=== PATIENT | female | born 1990 | race Caucasian/White ===

== ENCOUNTER 2016-09-16 05:07 | Inpatient (IN) | payer MEDICAID ==
[~2016-09-16] VITALS: Ht 160 cm; Wt 62.7 kg
[~2016-09-16 05:07] MED LIST: IBUP800T PO; OXYC-302 PO; SERT100T
[2016-09-16] MEDS ORDERED: OXYTOCIN 30U/ 0.9% NaCL 500ML 500 ML IV ONE (05:26)
[2016-09-16] MEDS ORDERED: NEWBORN KIT ONE (05:27)
[2016-09-16] MEDS ORDERED: OXYTOCIN 30U/ 0.9% NaCL 500ML 500 ML ONE (05:27)
[2016-09-16] MEDS ORDERED: ONDANSETRON 2MG/ML, 2ML ONE (05:30)
[2016-09-16] MEDS: PENICILLIN GK 2,500,000 UNITS in DEXTROSE 5% 100 ML IVPB SCH ×2 (05:30→09:30)
[2016-09-16] MEDS ORDERED: ONDANSETRON 2MG/ML, 2ML IVPush PRN (05:30)
[2016-09-16] MEDS ORDERED: PENICILLIN GK 5,000,000 UNITS in DEXTROSE 5% 100 ML IVPB ONE (05:30)
[2016-09-16] MEDS ORDERED: FENTANYL PF 100 MCG/2ML ONE (05:30)
[2016-09-16] MEDS ORDERED: FENTANYL PF 100 MCG/2ML IV PRN (05:30)
[2016-09-16] MEDS ORDERED: FENTANYL PF 100 MCG/2ML IVPush PRN (05:30)
[2016-09-16] MEDS: LACTATED RINGERS 1,000 ML IV SCH ×2 (05:33→06:52)
[2016-09-16] MEDS ORDERED: FENTANYL/BUPIV./NS/PF 250 ML EPIDCONT ONE ×2 (06:24→06:28)
[2016-09-16] MEDS ORDERED: LIDOCAINE/PF 1.5%-EPI 1:200K, 30ML ONE (06:28)
[2016-09-16] MEDS ORDERED: LIDOCAINE 1%, 20ML ONE (06:28)
[2016-09-16] MEDS ORDERED: BUPIVACAINE 0.25% ONE (06:28)
[2016-09-16] MEDS ORDERED: IBUPROFEN 600 MG TABLET ONE (08:20)
[2016-09-16] MEDS: OXYTOCIN 30U/ 0.9% NaCL 500ML 500 ML IV SCH ×8 (08:20→18:20)
[2016-09-16] MEDS ORDERED: ONDANSETRON 2MG/ML, 2ML IV PRN (08:30)
[2016-09-16] MEDS ORDERED: OXYcodone/APAP 5/325MG TABLET PO PRN (08:30)
[2016-09-16] MEDS ORDERED: MISOPROSTOL 200 MCG TABLET PR PRN (08:30)
[2016-09-16] MEDS: IBUPROFEN 600 MG TABLET PO PRN ×2 (08:35→18:22)
[2016-09-16] MEDS: PRENATAL VIT/IRON/FA 1 EACH TABLET PO SCH (09:00)
[2016-09-16 10:05] VITALS: BP 120/81
[2016-09-16 14:00] VITALS: BP 114/67
[2016-09-16 20:30] VITALS: BP 114/72
[2016-09-16] MEDS: DOCUSATE 100 MG CAPSULE PO PRN (20:37)
[2016-09-16] MEDS: OXYcodone/APAP 5/325MG TABLET PO PRN (20:37)
[2016-09-17 00:40] VITALS: BP 107/61
[2016-09-17] MEDS: IBUPROFEN 600 MG TABLET PO PRN ×4 (00:58→21:43)
[2016-09-17] MEDS: OXYcodone/APAP 5/325MG TABLET PO PRN ×4 (00:58→21:43)
[2016-09-17] MEDS: OXYTOCIN 30U/ 0.9% NaCL 500ML 500 ML IV SCH ×2 (04:20→15:50)
[2016-09-17] MEDS: DOCUSATE 100 MG CAPSULE PO PRN ×2 (08:21→21:43)
[2016-09-17] MEDS: PRENATAL VIT/IRON/FA 1 EACH TABLET PO SCH (08:21)
[2016-09-17 08:30] VITALS: BP 145/88
[2016-09-17 21:15] VITALS: BP 105/62
[2016-09-18] MEDS: OXYTOCIN 30U/ 0.9% NaCL 500ML 500 ML IV SCH ×2 (00:20→10:20)
[2016-09-18 08:12] VITALS: BP 107/61
[2016-09-18] MEDS: IBUPROFEN 600 MG TABLET PO PRN (08:17)
[2016-09-18] MEDS: DOCUSATE 100 MG CAPSULE PO PRN (08:17)
[2016-09-18] MEDS: PRENATAL VIT/IRON/FA 1 EACH TABLET PO SCH (08:17)
== END 2016-09-18 15:45 | disposition home or self-care (01) | DRG 775 ==
LOC: LDOP 05:07 → LDIP 05:26 → 2NW 10:05
PROVIDERS: ADMIT Obstetrics & Gynecology; ATTEND Obstetrics & Gynecology
PROC: 10E0XZZ Delivery of Products of Conception, External Approach (ICD-10-PCS; principal; 2016-09-16)
PROC: 10907ZC Drainage of Amniotic Fluid, Therapeutic from Products of Conception, Via Natural or Artificial Opening (ICD-10-PCS; 2016-09-16)
PROC: 00HU33Z Insertion of Infusion Device into Spinal Canal, Percutaneous Approach (ICD-10-PCS; 2016-09-16)
PROC: 3E0R3CZ (ICD-10-PCS; 2016-09-16)
DX: O34.219 Maternal care for unspecified type scar from previous cesarean delivery (principal); O76 Abnormality in fetal heart rate and rhythm complicating labor and delivery; O69.81X0 Labor and delivery complicated by cord around neck, without compression, not applicable or unspecified; O99.814 Abnormal glucose complicating childbirth; Z3A.36 36 weeks gestation of pregnancy; Z37.0 Single live birth
CPT/HCPCS: 36415; 85025; 86850; 86900; J2405; J2540; J3010; J3490; J2590; J7120

== ENCOUNTER 2017-01-20 06:37 | Emergency (ER) | payer MEDICAID ==
[~2017-01-20] VITALS: Ht 160 cm; Wt 60.0 kg
[~2017-01-20 06:37] MED LIST changes: +AZIT250T89 PO; +CEFD300C37 PO; +IBUP-1223 PO; -IBUP800T PO
[2017-01-20] MEDS ORDERED: SODIUM CHLORIDE FLUSH 10ML SYR IVF ONE (07:30)
[2017-01-20] MEDS ORDERED: SODIUM CHLORIDE 0.9% 1,000ML IVBOLUS ONE (07:30)
[2017-01-20] MEDS ORDERED: ALBUTEROL/IPRATROPIUM 2.5MG/0.5MG, 3 ML NPPB ONE (07:30)
[2017-01-20] MEDS ORDERED: ALBUTEROL/IPRATROPIUM 2.5MG/0.5MG, 3 ML ONE (07:33)
[2017-01-20 07:34] LABS: HEMATOCRIT 41.9 % (34.6-47.8); HEMOGLOBIN 13.9 g/dL (11.7-16.4); WHITE BLOOD COUNT 8.9 x10^3/uL (3.4-10)
[2017-01-20 08:22] VITALS: BP 124/72
== END 2017-01-20 08:24 | disposition home or self-care (01) ==
LOC: ED 07:52
DX: J20.9 Acute bronchitis, unspecified (principal); J00 Acute nasopharyngitis [common cold]; E07.9 Disorder of thyroid, unspecified; Z87.891 Personal history of nicotine dependence
CPT/HCPCS: 36415; 71020; 83605; 85025; 94640; J7620

== ENCOUNTER 2017-04-06 12:19 | Emergency (ER) | payer MEDICAID ==
[~2017-04-06] VITALS: Ht 160 cm; Wt 65.0 kg
[2017-04-06] MEDS ORDERED: SERT50TA PO (13:05)
[2017-04-06 13:43] LABS: HEMATOCRIT 42.3 % (34.6-47.8); HEMOGLOBIN 14.5 g/dL (11.7-16.4); WHITE BLOOD COUNT 9.6 x10^3/uL (3.4-10)
[2017-04-06 13:55] LABS: BLOOD UREA NITROGEN 9 mg/dL (7-18)
[2017-04-06 17:08] VITALS: BP 115/61
== END 2017-04-06 17:11 | disposition home or self-care (01) ==
LOC: ED 12:50
DX: O03.4 Incomplete spontaneous abortion without complication (principal); Z90.49 Acquired absence of other specified parts of digestive tract; Z87.891 Personal history of nicotine dependence; Z3A.01 Less than 8 weeks gestation of pregnancy
CPT/HCPCS: 36415; 76801; 80048; 81003; 82040; 84702; 85025; 99285

== ENCOUNTER 2018-04-05 15:23 | Emergency (ER) | payer MEDICAID ==
[~2018-04-05] VITALS: Ht 160 cm; Wt 53.7 kg
[~2018-04-05 15:23] MED LIST changes: +SERT50TA PO
[2018-04-05 15:42] VITALS: BP 141/70
[2018-04-05] MEDS ORDERED: SODIUM CHLORIDE 0.9% 1,000ML IVBOLUS ONE (16:00)
[2018-04-05] MEDS ORDERED: PROMETHAZINE 25 MG/ML, 1ML IM ONE (16:00)
[2018-04-05 16:03] LABS: MEAN CORPUSCULAR HEMOGLOBIN 30.3 pg (27.0-34.8); MEAN CORPUSCULAR HGB CONC 33.5 g/dL (32.4-35.8); MEAN CORPUSCULAR VOLUME 90.4 fL (80-100); MEAN PLATELET VOLUME 9.2 fL (7.4-10.4); PLATELET COUNT 310 x10^3/uL (130-400); RED BLOOD COUNT 4.68 x10^6/uL (3.82-5.3); RED CELL DISTRIBUTION WIDTH 13.9 % (9.6-15.2)
[2018-04-05 16:14] LABS: ALANINE AMINOTRANSFERASE 53 U/L (12-78); ALBUMIN 4.2 g/dL (3.4-5.0); ANION GAP 10 mmol/L (5-15); CHLORIDE 110 mmol/L (98-107); CREATININE 0.77 mg/dL (0.55-1.02)
[2018-04-05 16:16] LABS: ALKALINE PHOSPHATASE 82 U/L (45-117); BILIRUBIN,TOTAL 0.6 mg/dL (0.2-1.0); TOTAL PROTEIN 8.1 g/dL (6.4-8.2)
[2018-04-05 16:24] LABS: BASOPHILS # (AUTO) 0.08 x10^3/uL (0-0.1); BASOPHILS % (AUTO) 0 % (0-1); EOSINOPHILS % (AUTO) 0 % (1-7); LYMPHOCYTES # (AUTO) 2.16 x10^3/uL (1-3.4); LYMPHOCYTES % (AUTO) 10 % (22-44); MD SCAN; MONOCYTES # (AUTO) 1.11 x10^3/uL (0.2-0.8); MONOCYTES % (AUTO) 5 % (2-9); NEUTROPHILS # (AUTO) 17.95 x10^3/uL (1.8-6.8); NEUTROPHILS % (AUTO) 84 % (42-75)
[2018-04-05] MEDS ORDERED: PROMETHAZINE 25 MG/ML, 1ML ONE (16:50)
[2018-04-05] MEDS ORDERED: MORPHINE SULFATE 4 MG/ML, 1ML ONE (16:50)
[2018-04-05] MEDS ORDERED: morphine SULFATE 10 MG/ML, 1ML IVPush ONE (17:00)
[2018-04-05 17:49] LABS: HCG UR SG 1.034 (1.003-1.030)
[2018-04-05 17:51] LABS: MICROSCOPIC INDICATED
[2018-04-05 18:22] LABS: CULTURE INDICATED? NO
[2018-04-05] MEDS ORDERED: OMNIPAQUE 350 MG/ML, 100ML BOTTLE ONE (18:30)
== END 2018-04-05 20:24 | disposition home or self-care (01) ==
LOC: ED 18:45
DX: N30.00 Acute cystitis without hematuria (principal); N12 Tubulo-interstitial nephritis, not specified as acute or chronic; Z90.49 Acquired absence of other specified parts of digestive tract
CPT/HCPCS: 36415; 74177; 80053; 81001; 81025; 85025; 96361; 96372; 96374; 99285; J2270; J2550; J7030; Q9967